=== PATIENT | female | born 1990 | race Caucasian/White ===

== ENCOUNTER 2022-09-12 18:55 | Emergency (ER) | payer OTHER ==
[~2022-09-12] VITALS: Ht 160 cm; Wt 58.9 kg
[2022-09-12 19:45] LABS: BASO # 0.1 10^3/uL (0.0-0.2); BASO % 0.9 % (0.0-1.0); EOS # 0.1 10^3/uL (0.0-0.5); HEMATOCRIT 36.7 % (36.0-47.0); HEMOGLOBIN 12.1 g/dl (12.0-15.5); LYMPH # 2.4 10^3/uL (1.5-5.0); LYMPH % 41.2 % (24.0-44.0); MEAN CORPUSCULAR HEMOGLOBIN 30.4 pg (27.0-33.0); MEAN CORPUSCULAR VOLUME 92.2 fl (80.0-96.0); MONO # 0.5 10^3/uL (0.0-0.8); MONO % 8.5 % (2.0-8.0); NEUTROPHILS # 2.8 10^3/uL (1.5-8.5); NEUTROPHILS % 48.2 % (36.0-66.0); PLATELET COUNT, AUTOMATED 231 10^3/uL (150-450); RED BLOOD COUNT 3.98 10^6/uL (4.00-5.40); WHITE BLOOD COUNT 5.9 10^3/uL (4.0-10.0)
[2022-09-12 20:21] LABS: BLOOD UREA NITROGEN 11 MG/DL (9-23); CARBON DIOXIDE LEVEL 27 MMOL/L (20-31); CHLORIDE LEVEL 107 MMOL/L (98-107); CREATININE FOR GFR 0.92 MG/DL (0.55-1.30); GLOMERULAR FILTRATION RATE > 60.0 (>60); GLUCOSE, FASTING 90 MG/DL (60-100); POTASSIUM SERUM 3.7 MMOL/L (3.5-5.1); SODIUM LEVEL 141 MMOL/L (136-145)
[2022-09-12] MEDS ORDERED: TRANEXAMIC ACID 650MG TABLET (LYSTEDA) PO ONE ×2 (23:20→23:25)
[2022-09-12] MEDS ORDERED: TRAN650T PO (23:29)
[2022-09-13 00:07] VITALS: BP 130/87
== END 2022-09-13 00:29 | disposition home or self-care (01) ==
LOC: M ED 18:55
DX: N93.8 Other specified abnormal uterine and vaginal bleeding (principal); N85.00 Endometrial hyperplasia, unspecified

== ENCOUNTER 2022-11-02 10:00 | Day surgery (SDC) | payer OTHER ==
[~2022-11-02] VITALS: Ht 160 cm; Wt 57.6 kg
[~2022-11-02 10:00] MED LIST: ACETAMINOPHEN *IV* 1,000 MG IV ONE; TRAN650T PO
[2022-11-02 10:52] LABS: HEMATOCRIT 37.4 % (36.0-47.0); HEMOGLOBIN 12.2 g/dl (12.0-15.5); MEAN CORPUSCULAR HEMOGLOBIN 29.8 pg (27.0-33.0); MEAN CORPUSCULAR HGB CONC 32.6 g/dl (32.0-36.5); MEAN CORPUSCULAR VOLUME 91.4 fl (80.0-96.0); PLATELET COUNT, AUTOMATED 216 10^3/uL (150-450); RED BLOOD COUNT 4.09 10^6/uL (4.00-5.40); WHITE BLOOD COUNT 5.3 10^3/uL (4.0-10.0)
[2022-11-02] MEDS ORDERED: MIDAZOLAM INJ 2MG/2ML VIAL As Ordered ONE (11:08)
[2022-11-02] MEDS ORDERED: fentaNYL 100 MCG/2 ML INJECTION As Ordered ONE (11:09)
[2022-11-02] MEDS ORDERED: ONDANSETRON 4MG 2ML VIAL As Ordered ONE (11:09)
[2022-11-02] MEDS ORDERED: LIDOCAINE 2% 100MG/5ML SDV (FOR ANES.) As Ordered ONE (11:09)
[2022-11-02] MEDS ORDERED: propofoL 200 MG/20 ML VIAL As Ordered ONE ×3 (11:09→13:45)
[2022-11-02] MEDS ORDERED: LR 1,000 ML IV SCH ×2 (11:25→14:05)
[2022-11-02] MEDS ORDERED: LIDOCAINE 1% SDV 30ML VIAL As Ordered ONE (12:42)
[2022-11-02] MEDS ORDERED: SILVER NITRATE APPLICATOR (1 = QTY 10) As Ordered ONE (12:42)
[2022-11-02] MEDS ORDERED: ACETAMINOPHEN 1000MG 100ML IV BAG As Ordered ONE (13:05)
[2022-11-02] MEDS ORDERED: KETOROLAC 60MG 2ML VIAL As Ordered ONE (13:06)
[2022-11-02] MEDS ORDERED: ONDANSETRON 4MG 2ML VIAL IV PRN (14:05)
[2022-11-02] MEDS ORDERED: oxyCODONE 5MG TAB PO PRN ×2 (14:05→14:40)
[2022-11-02] MEDS ORDERED: HYDROMORPHONE HCL 0.5 MG/ 0.5 ML SYRINGE IV PRN (14:05)
[2022-11-02] MEDS ORDERED: fentaNYL 100 MCG/2 ML INJECTION IV PRN (14:05)
[2022-11-02] MEDS: LR 1,000 ML IV SCH ×2 (15:22→20:38)
[2022-11-02] MEDS: ACETAMINOPHEN 500 MG TAB PO SCH (18:32)
[2022-11-02] MEDS: IBUPROFEN 800 MG TAB PO SCH (20:27)
[2022-11-02 22:00] VITALS: BP 112/62
[2022-11-03] MEDS: ACETAMINOPHEN 500 MG TAB PO SCH ×2 (00:08→06:23)
[2022-11-03 02:00] VITALS: BP 101/56
[2022-11-03] MEDS ORDERED: ONDANSETRON 4MG 2ML VIAL IV PRN (02:10)
[2022-11-03] MEDS: LR 1,000 ML IV SCH (05:49)
[2022-11-03] MEDS: IBUPROFEN 800 MG TAB PO SCH (05:49)
[2022-11-03 06:00] VITALS: BP 110/72
== END 2022-11-03 09:35 | disposition home or self-care (01) ==
LOC: M SDC 10:00 → M MS5PR 15:10 → M SDC 11-03 09:35
PROVIDERS: ATTEND Obstetrics & Gynecology
DX: N84.0 Polyp of corpus uteri (principal)
CPT/HCPCS: 36415; 58558; 81025; 85027; 86850; 86900; 86901; 88305; J0131; J1100; J1885; J2250; J2405; J3010

== ENCOUNTER → 2023-12-25 | Outpatient (CLI) | payer OTHER ==
[~2023-12-25] MED LIST changes: -ACETAMINOPHEN *IV* 1,000 MG IV ONE
== END ==
LOC: M WHC 09:14
PROVIDERS: ATTEND Physician Assistant
DX: N64.4 Mastodynia (principal)